=== PATIENT | male | born 1990 | race Caucasian/White ===

== ENCOUNTER 2022-02-06 20:24 | Emergency (ER) | payer SELFPAY ==
[~2022-02-06] VITALS: Ht 175.3 cm; Wt 98.0 kg
[2022-02-06 20:44] VITALS: BP 188/85
--- NOTE | 2022-02-06 20:49 | NUR ---
SWABS COLLECTED. PT TO ELEAZAR.
--- NOTE | 2022-02-06 23:49 | NUR ---
ANY HERNANDEZ CALLED PT IN LOBBY AND OUTSIDE. NO ANSWER.
== END 2022-02-06 23:49 | disposition left against medical advice (07) ==
LOC: MED 20:24
DX: R05.9 Cough, unspecified (principal); Z20.822 Contact with and (suspected) exposure to COVID-19; Z53.21 Procedure and treatment not carried out due to patient leaving prior to being seen by health care provider
CPT/HCPCS: 71045